=== PATIENT | male | born 1950 | race Asian ===

== ENCOUNTER → 2020-09-26 | Outpatient (CLI) | payer MEDICARE, OTHER ==
[2020-09-26 09:20] LABS: BASOPHILS % (AUTO) 1.1 % (0.0-2.0); HEMATOCRIT 43.2 % (41-53); HEMOGLOBIN 13.7 g/dL (13.5-17.5); LYMPHOCYTES # (AUTO) 1.2 K/uL (1.0-4.8); MEAN CORPUSCULAR HEMOGLOBIN 21.6 pg (26.0-34.0); MEAN CORPUSCULAR HGB CONC 31.7 G/dL (31.0-37.0); MEAN CORPUSCULAR VOLUME 68 fL (80-100); MONOCYTES # (AUTO) 0.8 K/uL (0.1-1.0); MONOCYTES % (AUTO) 11.1 % (2.0-9.0); NEUTROPHILS # (AUTO) 4.7 K/uL (1.8-7.7); NEUTROPHILS % (AUTO) 65.8 % (40.0-70.0); PLATELET COUNT (AUTO) 235 K/uL (150-450); RED BLOOD CELL COUNT(AUTO) 6.33 MIL/uL (4.50-5.90); RED CELL DISTRIBUTION WIDTH 16.6 % (11.5-14.5)
[2020-09-26 09:45] LABS: ALANINE AMINOTRANSFERASE 33 U/L (12-78); ALBUMIN 3.7 g/dL (3.4-5.0); ALKALINE PHOSPHATASE 50 U/L (46-116); ANION GAP 5 mmol/L (8-16); ASPARTATE AMINOTRANSFERASE 21 U/L (15-37); BILIRUBIN,TOTAL 0.7 mg/dL (0.1-1.0); CALCIUM, TOTAL 8.7 mg/dL (8.8-10.5); CARBON DIOXIDE 30 mmol/L (22-29); CHLORIDE 102 mmol/L (98-107); CREATININE 1.11 mg/dL (0.60-1.30); FREE T4 (FREE THYROXINE) 1.17 ng/dL (0.76-1.46); GLUCOSE,RANDOM 101 mg/dL (70-110); PHOSPHORUS 3.5 mg/dL (2.5-4.9); POTASSIUM 4.3 mmol/L (3.5-5.1); SODIUM SERUM 137 mmol/L (136-145); THYROID STIMULATING HORMONE 1.81 uIU/mL (0.36-3.74); TOTAL PROTEIN, SERUM 7.9 g/dL (6.4-8.2); UREA NITROGEN, BLOOD 14 mg/dL (7-18)
[2020-09-26 09:46] LABS: C-REACTIVE PROTEIN QUANT < 0.05 mg/dL (0.00-0.30); GLOMERULAR FILTR. RATE CALC > 60 mL/min (>60)
[2020-09-26 10:31] LABS: FOLATE SERUM 20.9 ng/mL (5.4-)
[2020-09-26 10:55] LABS: ERYTHROCYTE SEDIMENTATION RATE 9 MM/HR (0-15)
== END | disposition home or self-care (01) ==
LOC: LABMN 08:29
PROVIDERS: ATTEND Physical Medicine & Rehabilitation Spinal Cord Injury Medicine
DX: I63.89 Other cerebral infarction (principal); G62.9 Polyneuropathy, unspecified
CPT/HCPCS: 82164; 82607; 82746; 83735; 84439; 84443; 85300; 85301; 85302; 85305; 85306; 85651; 86038; 86140; 86592

== ENCOUNTER 2022-01-14 05:58 | Day surgery (SDC) | payer MEDICARE, OTHER ==
[2022-01-12 10:37] LABS: COVID AG,FIA SOURCE NASAL SWAB
[~2022-01-14] VITALS: Ht 162.6 cm; Wt 68.1 kg
[2022-01-14] MEDS ORDERED: BALANCED SALT 15 ML OPHTHALMIC IRRIG.SOLN OU ONE (05:59)
[2022-01-14] MEDS ORDERED: EPINEPHrine 1:1,000 [1 MG/ML] VIAL IM ONE (05:59)
[2022-01-14] MEDS ORDERED: MIDAZOLAM HCL 2 MG/2 ML VIAL IVP ONE (05:59)
[2022-01-14] MEDS ORDERED: POVIDONE-IODINE 10% 15 ML SOLUTION UD TP ONE (05:59)
[2022-01-14] MEDS ORDERED: TETRACAINE HCL/PF 0.5% 4 ML OPHTHALMIC SOLUTION OU ONE (05:59)
[2022-01-14] MEDS ORDERED: CHONDR SULF A SOD/HYALURONATE 1.05 ML KIT IO ONE (05:59)
[2022-01-14] MEDS ORDERED: ACETYLCHOLINE CHLORIDE 1 EA INTRAOCULAR SOLUTION KIT IO ONE ×2 (05:59→10:00)
[2022-01-14] MEDS ORDERED: FentaNYL CITRATE PF 100 MCG/2 ML VIAL IVP ONE (05:59)
[2022-01-14] MEDS ORDERED: LIDOCAINE/PF 1% 2 ML VIAL IM ONE (05:59)
[2022-01-14] MEDS ORDERED: RINGERS SOLUTION,LACTATED 500 ML IV ONE ×2 (06:00→06:33)
[2022-01-14] MEDS ORDERED: TROPICAMIDE 1% 2 ML OPHTHALMIC SOLUTION ONE (06:33)
[2022-01-14] MEDS ORDERED: MOXIFLOXACIN HCL 0.5% 3 ML OPHTHALMIC SOLUTION ONE (06:33)
[2022-01-14] MEDS ORDERED: KETOROLAC TROMETHAMINE 0.5% 5 ML OPHTHALMIC SOLUTION ONE (06:33)
[2022-01-14] MEDS ORDERED: PHENYLEPHRINE HCL 2.5% 2 ML OPHTHALMIC SOLUTION ONE (06:33)
[2022-01-14] MEDS: KETOROLAC TROMETHAMINE 0.5% 5 ML OPHTHALMIC SOLUTION OD SCH ×3 (06:35→06:47)
[2022-01-14] MEDS: TROPICAMIDE 1% 2 ML OPHTHALMIC SOLUTION OD SCH ×3 (06:36→06:48)
[2022-01-14] MEDS: PHENYLEPHRINE HCL 2.5% 2 ML OPHTHALMIC SOLUTION OD SCH ×3 (06:36→06:48)
[2022-01-14] MEDS: MOXIFLOXACIN HCL 0.5% 3 ML OPHTHALMIC SOLUTION OD SCH ×3 (06:36→06:48)
[2022-01-14] MEDS ORDERED: CHOL25TA4 PO (07:21)
[2022-01-14] MEDS ORDERED: BETA1TAB20 PO (07:21)
[2022-01-14] MEDS ORDERED: LISI-894 PO (07:21)
[2022-01-14] MEDS ORDERED: CLOP75TA60 PO (07:21)
[2022-01-14] MEDS ORDERED: AMLO-257 PO (07:21)
[2022-01-14] MEDS ORDERED: AcetaZOLAMIDE 500 MG ER CAPSULE PO ONE (08:45)
== END 2022-01-14 09:20 | disposition home or self-care (01) ==
LOC: SURGERY 05:58
PROVIDERS: ATTEND Ophthalmology
DX: H25.11 Age-related nuclear cataract, right eye (principal); I10 Essential (primary) hypertension; Z90.49 Acquired absence of other specified parts of digestive tract; Z98.890 Other specified postprocedural states; Z79.01 Long term (current) use of anticoagulants; G89.29 Other chronic pain; Z86.19 Personal history of other infectious and parasitic diseases
CPT/HCPCS: 66984; 87426; 93005; C9803; J0171; J2250; J3010; J3490; J7120; Q9967; V2632

== ENCOUNTER 2022-02-11 05:43 | Day surgery (SDC) | payer MEDICARE, OTHER ==
[2022-02-09 10:19] LABS: COVID AG,FIA SOURCE NASOPHARYNGEAL
[~2022-02-11] VITALS: Ht 162.6 cm; Wt 70.5 kg
[~2022-02-11 05:43] MED LIST: AMLO-257 PO; BETA1TAB20 PO; CHOL25TA4 PO; CLOP75TA60 PO; LISI-894 PO
[2022-02-11] MEDS ORDERED: CHONDR SULF A SOD/HYALURONATE 1.05 ML KIT IO ONE (05:44)
[2022-02-11] MEDS ORDERED: LIDOCAINE/PF 1% 2 ML VIAL IM ONE (05:44)
[2022-02-11] MEDS ORDERED: POVIDONE-IODINE 10% 15 ML SOLUTION UD TP ONE (05:44)
[2022-02-11] MEDS ORDERED: TETRACAINE HCL/PF 0.5% 4 ML OPHTHALMIC SOLUTION OU ONE (05:44)
[2022-02-11] MEDS ORDERED: MIDAZOLAM HCL 2 MG/2 ML VIAL IVP ONE (05:44)
[2022-02-11] MEDS ORDERED: BALANCED SALT 15 ML OPHTHALMIC IRRIG.SOLN OU ONE (05:44)
[2022-02-11] MEDS ORDERED: EPINEPHrine 1:1,000 [1 MG/ML] VIAL IM ONE (05:44)
[2022-02-11] MEDS ORDERED: FentaNYL CITRATE PF 100 MCG/2 ML VIAL IVP ONE (05:44)
[2022-02-11] MEDS ORDERED: RINGERS SOLUTION,LACTATED 500 ML IV ONE (06:00)
[2022-02-11] MEDS ORDERED: KETOROLAC TROMETHAMINE 0.5% 5 ML OPHTHALMIC SOLUTION ONE (06:31)
[2022-02-11] MEDS ORDERED: MOXIFLOXACIN HCL 0.5% 3 ML OPHTHALMIC SOLUTION ONE (06:32)
[2022-02-11] MEDS ORDERED: PHENYLEPHRINE HCL 2.5% 2 ML OPHTHALMIC SOLUTION ONE (06:32)
[2022-02-11] MEDS ORDERED: TROPICAMIDE 1% 2 ML OPHTHALMIC SOLUTION ONE (06:32)
[2022-02-11] MEDS ORDERED: LIDOCAINE/PF 1% 2 ML VIAL ONE (06:37)
[2022-02-11] MEDS: PHENYLEPHRINE HCL 2.5% 2 ML OPHTHALMIC SOLUTION OS SCH ×3 (07:11→07:15)
[2022-02-11] MEDS: MOXIFLOXACIN HCL 0.5% 3 ML OPHTHALMIC SOLUTION OS SCH ×3 (07:11→07:15)
[2022-02-11] MEDS: TROPICAMIDE 1% 2 ML OPHTHALMIC SOLUTION OS SCH ×3 (07:11→07:15)
[2022-02-11] MEDS: KETOROLAC TROMETHAMINE 0.5% 5 ML OPHTHALMIC SOLUTION OS SCH ×3 (07:11→07:15)
== END 2022-02-11 08:25 | disposition home or self-care (01) ==
LOC: SURGERY 05:43
PROVIDERS: ATTEND Ophthalmology
DX: H25.12 Age-related nuclear cataract, left eye (principal); Z90.49 Acquired absence of other specified parts of digestive tract; Z98.890 Other specified postprocedural states; I10 Essential (primary) hypertension
CPT/HCPCS: 66984; 87426; C9803; J0171; J2250; J3010; J3490; Q9967; V2632